=== PATIENT | female | born 1940 | race Caucasian/White ===

== ENCOUNTER 2018-04-13 18:09 | Inpatient (IN) | payer MEDICARE, OTHER ==
[~2018-04-13] VITALS: Ht 167.6 cm; Wt 66.7 kg
[~2018-04-13 18:09] MED LIST: GABA-534 PO; LEVO50TA8 PO; TURMERIC PO
[2018-04-13] MEDS ORDERED: ONDANSETRON 4 MG/2 ML VIAL ONE ×2 (18:23→21:33)
[2018-04-13] MEDS ORDERED: MORPHINE SULFATE 4 MG/1 ML DISP.SYRIN ONE ×2 (18:23→19:14)
[2018-04-13] MEDS ORDERED: MORPHINE SULFATE 2 MG/1 ML DISP.SYRIN IV ONE (18:30)
[2018-04-13] MEDS ORDERED: ONDANSETRON HCL 4 MG TABLET PO ONE (18:30)
[2018-04-13 18:34] LABS: BASOPHILS % (AUTO) 0.1 % (0.0-2.0); EOSINOPHILS % (AUTO) 0.2 % (0.0-7.0); HEMATOCRIT 24.8 % (31.2-41.9); HEMOGLOBIN 8.4 g/dL (10.9-14.3); LYMPHOCYTES # (AUTO) 1.1 K/uL (20.0-40.0); LYMPHOCYTES % (AUTO) 6.2 % (20.5-51.5); MEAN CORPUSCULAR HEMOGLOBIN 34.9 uug (24.7-32.8); MEAN CORPUSCULAR HGB CONC 34 g/dL (32.3-35.6); MEAN CORPUSCULAR VOLUME 103.3 fL (75.5-95.3); MONOCYTES # (AUTO) 1.1 K/uL (2.0-10.0); MONOCYTES % (AUTO) 5.8 % (0.0-11.0); NEUTROPHILS # (AUTO) 16.2 K/uL (1.8-8.9); NEUTROPHILS % (AUTO) 87.7 % (38.5-71.5); PLATELET COUNT (AUTO) 127 K/uL (179-408); WHITE BLOOD COUNT (AUTO) 18.4 K/uL (3.8-11.8)
--- NOTE | 2018-04-13 18:35 | NUR ---
PT UNABLE TO RECALL ALL MEDS AND DOSAGES AT THIS TIME, HER DAUGHTER WILL BRING MED BOTTLES LATER.
[2018-04-13] MEDS ORDERED: RANI150T43 PO (18:38)
[2018-04-13] MEDS ORDERED: BLADDER CONTROL PO (18:38)
[2018-04-13] MEDS ORDERED: STEROIDS PO (18:38)
[2018-04-13] MEDS ORDERED: BLOOD THINNER PO (18:38)
[2018-04-13 18:41] LABS: CARBON DIOXIDE 24 mmol/L (21-32); CHLORIDE 105 mmol/L (98-107); CREATININE 1.1 mg/dL (0.6-1.3); GLUCOSE 112 mg/dL (74-106); POTASSIUM 3.7 mmol/L (3.5-5.1); UREA NITROGEN, BLOOD 21 mg/dL (7-18)
[2018-04-13 18:48] LABS: NEUTROPHILS % (MANUAL) 81 % (42-75)
[2018-04-13 18:49] LABS: BAND % (MANUAL) 6 % (0-10); LYMPHOCYTES % (MANUAL) 9 % (20-40); MONOCYTES % (MANUAL) 4 % (2-10)
--- NOTE | 2018-04-13 19:08 | NUR ---
RECEIVED SHIFT REPORT FROM HILARY GIBSON.
[2018-04-13] MEDS ORDERED: IV NORMAL SALINE 500 ML BAG IV ONE (19:15)
[2018-04-13] MEDS ORDERED: MORPHINE SULFATE 4 MG/1 ML DISP.SYRIN IV ONE (19:15)
--- NOTE | 2018-04-13 21:09 | NUR ---
GAVE ADMITTING REPORT TO HILARY VANEGAS.
[2018-04-13] MEDS ORDERED: ACETAMINOPHEN 325 MG TABLET PO PRN (21:15)
[2018-04-13] MEDS ORDERED: ZOLPIDEM 5 MG TABLET PO PRN (21:15)
[2018-04-13] MEDS ORDERED: ONDANSETRON 4 MG/2 ML VIAL IV PRN ×2 (21:15→21:30)
[2018-04-13] MEDS ORDERED: MAGNESIUM HYDROXIDE 30 ML LIQUID UDC PO PRN (21:15)
[2018-04-13] MEDS ORDERED: Z GUARD REMEDY PASTE 57 GM TUBE TOP PRN (21:15)
[2018-04-13] MEDS ORDERED: LORAZEPAM 2 MG/1 ML VIAL IV PRN (21:15)
[2018-04-13] MEDS ORDERED: MORPHINE SULFATE 4 MG/1 ML DISP.SYRIN IV PRN (21:15)
[2018-04-13] MEDS ORDERED: ALBUTEROL SULFATE 2.5 MG/3 ML NEBU NEB PRN (21:15)
[2018-04-13] MEDS ORDERED: OXYCODONE/APAP 5-325 MG TABLET PO PRN (21:30)
[2018-04-13] MEDS ORDERED: HYDROMORPHONE 1 MG/1 ML DISP.SYRIN ONE (21:33)
[2018-04-13] MEDS: HYDROMORPHONE 1 MG/1 ML DISP.SYRIN IV PRN (21:38)
--- NOTE | 2018-04-13 22:00 | NUR ---
PATIENT NEWLY ADMITTED TO THE MED SURG UNIT WITH ADMIT DX OF C3-4 BULGING DISC/INTRACTABLE PAIN UNDER JUICE SCALEMAN MOLLY. PATIENT IN STABLE CONDITION UPON ADMISSION IN NO ACUTE DISTRESS. BP ELEVATED D/T EXTREME 10/10 NECK PAIN. WILL MEDICATE PER MD ORDER & REASSESS PAIN LEVEL. ALL OTHER VITALS WNL. PERTINENT ASSESSMENT COMPLETED. A/OX4 & ABLE TO MAKE ALL HER NEEDS KNOWN. SKIN IS CLEAN, DRY, INTACT. RM AIR AT 98%, DENIES SOB. NOTED WITH LEFT ANTERIOR CHEST WALL PORTACATH RUNNING WITH IV NS AT 75CC/HR FOR HYDRATION. PATIENT HAS A COLOSTOMY BAG LLQ. NO SKIN BREAKDOWN OR REDNESS NOTED AROUND SITE. BED IN LOW POSITION, LOCKED, X2 SIDE RAILS UP. CALL LIGHT WITHIN REACH. WILL CONTINUE TO MONITOR THROUGH SHIFT.
[2018-04-13 22:06] VITALS: BP 152/66
--- NOTE | 2018-04-13 23:00 | NUR ---
Family currently at the bedside. Patient stating she is a DNR/DNI & has a POLST at home. Daughter to bring in AM with advanced directives. Tree cantu RN witnessed patient statement.
[2018-04-14] MEDS: HYDROMORPHONE 1 MG/1 ML DISP.SYRIN IV PRN (00:33)
[2018-04-14] MEDS: IV NS 1000 ML 1,000 ML IV PRN ×2 (00:44→22:17)
[2018-04-14 03:25] VITALS: BP 115/50
[2018-04-14] MEDS: MORPHINE SULFATE 4 MG/1 ML DISP.SYRIN IV PRN ×2 (03:26→10:33)
[2018-04-14 05:21] VITALS: BP 120/47
--- NOTE | 2018-04-14 06:18 | NUR ---
C/O extreme 10/10 neck pain during the night. Administered pain meds as ordered. Little relief with pain medications. Comfort measures provided. Vital signs within range. Respiratory rate & o2 sat within limits. No SOB noted. All needs attended to promptly. Safety measures implemented. Call light within reach. Will endorse to day shift nurse.
[2018-04-14] MEDS: PANTOPRAZOLE SODIUM 40 MG TABLET.DR PO SCH (06:26)
[2018-04-14 06:29] LABS: BASOPHILS % (AUTO) 0.1 % (0.0-2.0); EOSINOPHILS % (AUTO) 0.1 % (0.0-7.0); HEMATOCRIT 23.2 % (31.2-41.9); HEMOGLOBIN 7.8 g/dL (10.9-14.3); LYMPHOCYTES # (AUTO) 1.1 K/uL (20.0-40.0); LYMPHOCYTES % (AUTO) 4.2 % (20.5-51.5); MEAN CORPUSCULAR HEMOGLOBIN 34.5 uug (24.7-32.8); MEAN CORPUSCULAR HGB CONC 34 g/dL (32.3-35.6); MEAN CORPUSCULAR VOLUME 102.7 fL (75.5-95.3); MONOCYTES # (AUTO) 1.3 K/uL (2.0-10.0); MONOCYTES % (AUTO) 4.8 % (0.0-11.0); NEUTROPHILS # (AUTO) 24.2 K/uL (1.8-8.9); NEUTROPHILS % (AUTO) 90.8 % (38.5-71.5); PLATELET COUNT (AUTO) 126 K/uL (179-408); WHITE BLOOD COUNT (AUTO) 26.6 K/uL (3.8-11.8)
[2018-04-14 06:32] LABS: RED BLOOD CELL COUNT(AUTO) 2.26 MIL/uL (3.63-4.92)
[2018-04-14 06:46] LABS: ALANINE AMINOTRANSFERASE 25 U/L (14-59); ALKALINE PHOSPHATASE 192 U/L (50-136); ASPARTATE AMINOTRANSFERASE 28 U/L (15-37); BILIRUBIN,TOTAL 0.5 mg/dL (0.2-1.0); CARBON DIOXIDE 22 mmol/L (21-32); CHLORIDE 104 mmol/L (98-107); CHOLESTEROL 139 mg/dL (<200); GLUCOSE 119 mg/dL (74-106); HDL CHOLESTEROL 93 mg/dL (40-60); MAGNESIUM 1.4 mg/dL (1.8-2.4); PHOSPHOROUS 3.6 mg/dL (2.5-4.9); POTASSIUM 4.1 mmol/L (3.5-5.1); TOTAL PROTEIN, SERUM 6.5 g/dL (6.4-8.2); TRIGLYCERIDES 57 MG/DL (30-150); UREA NITROGEN, BLOOD 22 mg/dL (7-18)
[2018-04-14 06:57] LABS: THYROID STIMULATING HORMONE 13.496 mIU/mL (0.358-3.740)
[2018-04-14 07:29] LABS: LYMPHOCYTES % (MANUAL) 7 % (20-40); MONOCYTES % (MANUAL) 2 % (2-10); NEUTROPHILS % (MANUAL) 91 % (42-75)
[2018-04-14] MEDS: MAGNESIUM SULFATE/D5W 100 ML IV SCH ×2 (07:59→08:55)
[2018-04-14] MEDS: CARISOPRODOL 350 MG TABLET PO SCH ×3 (08:02→17:12)
[2018-04-14] MEDS: GABAPENTIN 300 MG CAPSULE PO SCH ×3 (08:02→17:12)
[2018-04-14] MEDS: BACLOFEN 10 MG TABLET PO SCH ×3 (08:02→17:12)
[2018-04-14] MEDS: ASPIRIN EC 81 MG TABLET.DR PO SCH (08:09)
[2018-04-14] MEDS: LEVOTHYROXINE SODIUM 175 MCG TABLET PO SCH (08:12)
[2018-04-14] MEDS ORDERED: LEVOTHYROXINE SODIUM 50 MCG TABLET PO SCH (09:00)
[2018-04-14 10:14] LABS: *BILIRUBIN,URIN NEGATIVE (NEGATIVE); *BLOOD, URINE 1+ (NEGATIVE); *CLARITY,URINE SLIGHTLY CLOUDY (CLEAR); *COLOR,URINE DARK YELLOW (YELLOW); *KETONES,URINE NEGATIVE (NEGATIVE); *PROTEIN,URINE 1+ (NEGATIVE); *UROBILINOGEN,URINE 0.2 E.U./dl (NORMAL); LEUKOCYTE ESTERASE ,URINE TRACE (NEGATIVE); NITRITE, URINE POSITIVE (NEGATIVE); PH,URINE 5.5 (5.0-8.0); UGLUCOSE NEGATIVE (NEGATIVE)
[2018-04-14 10:38] LABS: BACTERIA,URINE MANY /HPF (NONE SEEN); RBC,URINE 20-50 /HPF (0-3); WBC,URINE 50-80 /HPF (0-3)
[2018-04-14 10:39] LABS: SQUAMOUS EPITHELIAL CELL,UR FEW /HPF (NONE SEEN)
[2018-04-14] MEDS ORDERED: LEVOFLOXACIN 500 MG TABLET PO SCH (11:00)
[2018-04-14 11:55] VITALS: BP 104/46
[2018-04-14 15:54] VITALS: BP 107/47
[2018-04-14] MEDS ORDERED: RANI150T8 PO (18:15)
[2018-04-14] MEDS ORDERED: DABI150C PO (18:15)
[2018-04-14] MEDS ORDERED: FOLI1TAB16 PO (18:15)
[2018-04-14] MEDS ORDERED: ANAS1TAB8 PO (18:15)
[2018-04-14] MEDS ORDERED: DEXA4TAB PO (18:15)
[2018-04-14] MEDS ORDERED: OXYB5TAB11 PO (18:15)
--- NOTE | 2018-04-14 18:21 | NUR ---
PT OBSERVED SLEEPING IN BED, PAIN CONTROLLED AT THIS TIME, WARM PACKS APPLIED TO NECK. PT SHOWS NO SIGNS OF RESPIRATORY DISTRESS. CONTINUE TO MONITOR PT.
[2018-04-14] MEDS ORDERED: MORPHINE SULFATE 4 MG/1 ML DISP.SYRIN IV PRN (18:45)
--- NOTE | 2018-04-14 19:20 | NUR ---
RECEIVED PT AWAKE, ALERT AND ORIENTEDX2. PT COUGHING. PT SHOWS NO SIGNS OF DISTRESS. COLOSTOMY BAG INTACT. IV INTACT AND PATENT. CALL LIGHT WITHIN REACH. BED ALARM AND IN LOW POSITION, SIDE RAILS UPX2. WILL CONTINUE TO MONITOR.
[2018-04-14 19:42] VITALS: BP 126/56
[2018-04-14] MEDS: HYDROCODONE/APAP 5-325MG TABLET PO PRN (20:47)
--- NOTE | 2018-04-14 20:47 | NUR ---
PT COMPLAINING OF 10/10 PAIN ON HER NECK. FAMILY AT BEDSIDE. GAVE NORCO. FAMILY AND PT REFUSED TO HAVE TYLENOL ES MEDICATION SINCE SHE TOOK NORCO. PT STILL IN PAIN WILL CONTINUE TO MONITOR.
[2018-04-14] MEDS: ACETAMINOPHEN ES 500 MG TABLET PO SCH (21:00)
[2018-04-14] MEDS ORDERED: ACETAMINOPHEN 325 MG TABLET PO SCH (21:15)
--- NOTE | 2018-04-14 21:47 | NUR ---
PT TOLERATED THE NORCO MEDICATION. PT PAIN SUBSIDED TO 4/10. PT SLEEPING AND AROUSES EASILY. CHANGED THE COLOSTOMY BAG WITH THE CHARGE NURSE. WILL CONTINUE TO MONITOR.
[2018-04-15] VITALS (9 sets, daily range): BP systolic 99–138; BP diastolic 43–61
--- NOTE | 2018-04-15 | NUR ---
HANDS OFF REPORT TO MAKI RICHARD. PT STABLE WITH NO ACUTE DISTRESS. IV INTACT AND PATENT. SAFETY AND COMFORT PROVIDED. WILL CONTINUE TO MONITOR.
[2018-04-15] MEDS: HYDROCODONE/APAP 5-325MG TABLET PO PRN (02:44)
[2018-04-15] MEDS: ACETAMINOPHEN ES 500 MG TABLET PO SCH ×4 (03:00→20:11)
--- NOTE | 2018-04-15 03:15 | NUR ---
PATIENT AWAKE IN BED. VERY ANXIOUS. PATIENT GIVEN ATIVAN 1MG IV PER INSTRUMENT AND CONTROL SERVICE PERSON. VSS. CALL LIGHT IN REACH. ALL NEEDS ATTENDED. WILL CONTINUE TO MONITOR.
--- NOTE | 2018-04-15 06:10 | NUR ---
PATIENT ASLEEP IN BED. EASILY AROUSABLE BUT QUICKLY FALLS BACK ASLEEP. UNABLE TO TAKE PO MEDS AT THIS TIME. WILL CONTINUE TO MONITOR. IVF INFUSING WELL. ALL NEEDS ATTENDED. CALL LIGHT IN REACH. ALL NEEDS ATTENDED. WILL CONTINUE TO MONITOR AND ASSESS.
[2018-04-15] MEDS: PANTOPRAZOLE SODIUM 40 MG TABLET.DR PO SCH (06:12)
[2018-04-15] MEDS: LEVOTHYROXINE SODIUM 175 MCG TABLET PO SCH (06:12)
[2018-04-15 06:49] LABS: BASOPHILS % (AUTO) 0.1 % (0.0-2.0); EOSINOPHILS % (AUTO) 0.2 % (0.0-7.0); LYMPHOCYTES # (AUTO) 0.6 K/uL (20.0-40.0); LYMPHOCYTES % (AUTO) 5.7 % (20.5-51.5); MEAN CORPUSCULAR HEMOGLOBIN 35.2 uug (24.7-32.8); MEAN CORPUSCULAR HGB CONC 34 g/dL (32.3-35.6); MEAN CORPUSCULAR VOLUME 103.7 fL (75.5-95.3); MONOCYTES # (AUTO) 0.6 K/uL (2.0-10.0); MONOCYTES % (AUTO) 6.3 % (0.0-11.0); NEUTROPHILS # (AUTO) 8.7 K/uL (1.8-8.9); NEUTROPHILS % (AUTO) 87.7 % (38.5-71.5); PLATELET COUNT (AUTO) 92 K/uL (179-408); WHITE BLOOD COUNT (AUTO) 9.9 K/uL (3.8-11.8)
[2018-04-15 07:05] LABS: CARBON DIOXIDE 23 mmol/L (21-32); CHLORIDE 106 mmol/L (98-107); GLUCOSE 108 mg/dL (74-106); MAGNESIUM 1.7 mg/dL (1.8-2.4); POTASSIUM 3.7 mmol/L (3.5-5.1); UREA NITROGEN, BLOOD 16 mg/dL (7-18)
[2018-04-15 07:12] LABS: RED BLOOD CELL COUNT(AUTO) 1.87 MIL/uL (3.63-4.92)
[2018-04-15 07:13] LABS: HEMATOCRIT 19.3 % (31.2-41.9)
[2018-04-15 07:14] LABS: HEMOGLOBIN 6.6 g/dL (10.9-14.3)
[2018-04-15 07:56] LABS: LYMPHOCYTES % (MANUAL) 6 % (20-40); MONOCYTES % (MANUAL) 6 % (2-10); NEUTROPHILS % (MANUAL) 88 % (42-75)
[2018-04-15] MEDS ORDERED: ACETAMINOPHEN ES 500 MG TABLET PO ONE (08:00)
[2018-04-15] MEDS: MAGNESIUM SULFATE/D5W 100 ML IV SCH ×2 (08:01→09:27)
[2018-04-15] MEDS: BACLOFEN 10 MG TABLET PO SCH ×2 (08:01→18:01)
[2018-04-15] MEDS: GABAPENTIN 300 MG CAPSULE PO SCH ×3 (08:03→18:01)
[2018-04-15] MEDS: ASPIRIN EC 81 MG TABLET.DR PO SCH (09:00)
[2018-04-15 09:45] LABS: IRON, SERUM 28 ug/dL (50-175)
[2018-04-15 10:24] LABS: FERRITIN 194 ng/mL (8-252)
[2018-04-15] MEDS ORDERED: LEVOFLOXACIN 250 MG TABLET PO SCH (11:00)
[2018-04-15] MEDS: MORPHINE SULFATE 2 MG/1 ML DISP.SYRIN IV PRN (13:00)
[2018-04-15 15:11] LABS: HEMATOCRIT 24.4 % (31.2-41.9); HEMOGLOBIN 8.2 g/dL (10.9-14.3)
[2018-04-15 17:09] LABS: *OCCULT BLOOD STOOL POSITIVE (NEGATIVE)
[2018-04-15] MEDS: FERROUS SULFATE 325 MG TABEC PO SCH ×2 (18:00→20:11)
[2018-04-15] MEDS: OXYBUTYNIN CHLORIDE 5 MG TABLET PO SCH (18:01)
--- NOTE | 2018-04-15 18:33 | NUR ---
pt observed resting in bed, calm, no signs of distress, RA, Aox2, bed alarm on. blood occult positive, positive for uti plan is to continue Levaquin and start on iron and Protonix bid. Continue to monitor pt.
--- NOTE | 2018-04-15 19:17 | NUR ---
RECEIVED PT AWAKE, ALERT AND ORIENTEDX3. PT SHOWS NO SIGNS OF DISTRESS. IV INTACT. PT ON SALINE LOCK. PT STABLE. CALL LIGHT WITHIN REACH. SAFETY AND COMFORT PROVIDED. WILL CONTINUE TO MONITOR.
[2018-04-15 22:09] LABS: LACTATE DEHYDROGENASE 716 U/L (81-234)
[2018-04-16] MEDS: MORPHINE SULFATE 2 MG/1 ML DISP.SYRIN IV PRN ×4 (01:50→15:50)
[2018-04-16] MEDS: ACETAMINOPHEN ES 500 MG TABLET PO SCH ×4 (03:00→20:34)
[2018-04-16] MEDS: LEVOTHYROXINE SODIUM 200 MCG TABLET PO SCH (06:04)
[2018-04-16] MEDS: PANTOPRAZOLE SODIUM 40 MG TABLET.DR PO SCH ×2 (06:04→16:50)
--- NOTE | 2018-04-16 06:09 | NUR ---
PT SLEPT THROUGHOUT THE SHIFT. PT SHOWS NO SIGNS OF DISTRESS. PRESCRIBED MEDICATION GIVEN AND PT TOLERATED IT WELL.. IV INTACT. CALL LIGHT WITHIN REACH. BED ALARM ON AND IN LOW POSITION. SIDE RAILS UPX2. SAFETY AND COMFORT PROVIDED. ALL NEEDS ARE MET. WILL CONTINUE TO MONITOR.
[2018-04-16 06:32] VITALS: BP 128/50
[2018-04-16 06:41] LABS: BASOPHILS % (AUTO) 0.1 % (0.0-2.0); HEMATOCRIT 23.3 % (31.2-41.9); HEMOGLOBIN 7.9 g/dL (10.9-14.3); LYMPHOCYTES # (AUTO) 0.8 K/uL (20.0-40.0); LYMPHOCYTES % (AUTO) 5.9 % (20.5-51.5); MEAN CORPUSCULAR HEMOGLOBIN 34.7 uug (24.7-32.8); MEAN CORPUSCULAR HGB CONC 34 g/dL (32.3-35.6); MEAN CORPUSCULAR VOLUME 101.8 fL (75.5-95.3); MONOCYTES # (AUTO) 0.6 K/uL (2.0-10.0); MONOCYTES % (AUTO) 4.5 % (0.0-11.0); NEUTROPHILS # (AUTO) 12.1 K/uL (1.8-8.9); NEUTROPHILS % (AUTO) 89.5 % (38.5-71.5); PLATELET COUNT (AUTO) 128 K/uL (179-408); WHITE BLOOD COUNT (AUTO) 13.5 K/uL (3.8-11.8)
[2018-04-16 06:56] LABS: CARBON DIOXIDE 24 mmol/L (21-32); CHLORIDE 106 mmol/L (98-107); CREATININE 0.9 mg/dL (0.6-1.3); GLUCOSE 114 mg/dL (74-106); MAGNESIUM 1.8 mg/dL (1.8-2.4); PHOSPHOROUS 2.8 mg/dL (2.5-4.9); POTASSIUM 3.4 mmol/L (3.5-5.1); UREA NITROGEN, BLOOD 7 mg/dL (7-18)
[2018-04-16 06:58] LABS: RED BLOOD CELL COUNT(AUTO) 2.28 MIL/uL (3.63-4.92)
[2018-04-16] MEDS ORDERED: LEVOTHYROXINE SODIUM 175 MCG TABLET PO SCH (07:00)
--- NOTE | 2018-04-16 07:57 | NUR ---
Received patient asleep in bed, easily arousable, alert and oriented x 4. Patient not in any form of distress. Bed in low position and side rails x 2 up. Call light within reach. Patient complaining of cervical pain, will give pain medication as ordered. All needs attended. Ensured patient safety and comfort. Will continue to monitor.
[2018-04-16] MEDS: ANASTROZOLE 1 MG TABLET PO SCH (09:00)
[2018-04-16] MEDS: BACLOFEN 10 MG TABLET PO SCH ×2 (09:02→16:51)
[2018-04-16] MEDS: OXYBUTYNIN CHLORIDE 5 MG TABLET PO SCH ×2 (09:02→16:50)
[2018-04-16] MEDS: FOLIC ACID 1 MG TABLET PO SCH (09:02)
[2018-04-16] MEDS: GABAPENTIN 300 MG CAPSULE PO SCH ×3 (09:02→16:50)
[2018-04-16] MEDS: FERROUS SULFATE 325 MG TABEC PO SCH ×2 (09:03→20:34)
[2018-04-16] MEDS ORDERED: diphenhydrAMINE 50 MG CAPSULE PO PRN (09:45)
[2018-04-16] MEDS ORDERED: ACETAMINOPHEN ES 500 MG TABLET PO PRN (09:45)
[2018-04-16] MEDS ORDERED: LEVOFLOXACIN 500 MG TABLET PO SCH (11:00)
[2018-04-16 11:26] VITALS: BP 116/55
[2018-04-16] MEDS ORDERED: POTASSIUM CHLORIDE 20 MEQ POWDER PACKET PO ONE (11:45)
[2018-04-16 16:04] VITALS: BP 114/53
[2018-04-16] MEDS ORDERED: diphenhydrAMINE 25 MG CAP PO PRN (17:30)
[2018-04-16 18:08] LABS: HEMATOCRIT 25.2 % (31.2-41.9); HEMOGLOBIN 8.6 g/dL (10.9-14.3)
--- NOTE | 2018-04-16 18:31 | NUR ---
Patient awake in high back rest, not in any form of distress, still with complaints of neck pain, prn pain medications given with relief noted. Patient able to ambulate with assist. Noted, was able to confirm that patient takes Anastrozole pre-admission as hormone pill. Bed kept in low position, side rails up x 2, call light within reach and ensured patient safety and comfort.
--- NOTE | 2018-04-16 19:39 | NUR ---
PATIENT IS AWAKE IN BED, AAOX4. DENIES PAIN OR ANY DISTRESS ON ASSESSMENT. SAFETY AND COMFORT MEASURES IN PLACE, WILL CONTINUE TO MONITOR PATIENT
[2018-04-16 20:00] VITALS: BP 118/51
[2018-04-17] MEDS: ACETAMINOPHEN ES 500 MG TABLET PO SCH ×3 (03:25→15:12)
[2018-04-17 04:42] VITALS: BP 133/54
[2018-04-17] MEDS: PANTOPRAZOLE SODIUM 40 MG TABLET.DR PO SCH ×2 (06:07→17:05)
[2018-04-17] MEDS: LEVOTHYROXINE SODIUM 200 MCG TABLET PO SCH (06:07)
--- NOTE | 2018-04-17 06:12 | NUR ---
PATIENT SLEPT WELL ON THIS SHIFT, NO C/O PAIN OR DISTRESS ON THIS SHIFT. ROUTINE PAIN MEDS GIVEN ORDERED. PATIENT IN STABLE CONDITION. V/S WNL. SAFETY MEASURES MAINTAINED AT ALL TIMES
[2018-04-17 06:13] LABS: BASOPHILS % (AUTO) 0.1 % (0.0-2.0); EOSINOPHILS % (AUTO) 0.2 % (0.0-7.0); HEMATOCRIT 23.8 % (31.2-41.9); HEMOGLOBIN 8.2 g/dL (10.9-14.3); LYMPHOCYTES # (AUTO) 0.9 K/uL (20.0-40.0); LYMPHOCYTES % (AUTO) 7.6 % (20.5-51.5); MEAN CORPUSCULAR HGB CONC 34 g/dL (32.3-35.6); MONOCYTES # (AUTO) 0.6 K/uL (2.0-10.0); MONOCYTES % (AUTO) 4.7 % (0.0-11.0); NEUTROPHILS # (AUTO) 10.9 K/uL (1.8-8.9); NEUTROPHILS % (AUTO) 87.4 % (38.5-71.5); PLATELET COUNT (AUTO) 156 K/uL (179-408); WHITE BLOOD COUNT (AUTO) 12.5 K/uL (3.8-11.8)
[2018-04-17 06:14] LABS: RED BLOOD CELL COUNT(AUTO) 2.34 MIL/uL (3.63-4.92)
[2018-04-17 06:48] LABS: CARBON DIOXIDE 27 mmol/L (21-32); CHLORIDE 107 mmol/L (98-107); CREATININE 1.1 mg/dL (0.6-1.3); GLUCOSE 95 mg/dL (74-106); MAGNESIUM 1.7 mg/dL (1.8-2.4); POTASSIUM 3.5 mmol/L (3.5-5.1)
[2018-04-17 06:59] LABS: UREA NITROGEN, BLOOD 11 mg/dL (7-18)
--- NOTE | 2018-04-17 08:14 | NUR ---
Received patient awake on high back rest, alert and oriented x 4. Patient not in any form of distress at the moment. Not complaining of severe cervical pain at the moment but will continue to monitor. Bed in low position and side rails x 2 up. Call light within reach. Ensured patient safety and comfort.
[2018-04-17] MEDS: BACLOFEN 10 MG TABLET PO SCH ×2 (09:07→17:05)
[2018-04-17] MEDS: FOLIC ACID 1 MG TABLET PO SCH (09:07)
[2018-04-17] MEDS: FERROUS SULFATE 325 MG TABEC PO SCH (09:07)
[2018-04-17] MEDS: GABAPENTIN 300 MG CAPSULE PO SCH ×3 (09:07→17:04)
[2018-04-17] MEDS: OXYBUTYNIN CHLORIDE 5 MG TABLET PO SCH ×2 (09:07→17:04)
[2018-04-17] MEDS: ANASTROZOLE 1 MG TABLET PO SCH (09:10)
[2018-04-17] MEDS: MAGNESIUM SULFATE/D5W 100 ML IV SCH ×2 (09:48→10:54)
[2018-04-17] MEDS ORDERED: LEVOFLOXACIN 250 MG TABLET PO SCH (11:00)
[2018-04-17] MEDS ORDERED: LEVO500T2 PO (11:03)
[2018-04-17] MEDS: MORPHINE SULFATE 2 MG/1 ML DISP.SYRIN IV PRN ×2 (11:06→18:10)
[2018-04-17 11:22] VITALS: BP 111/54
[2018-04-17 15:02] VITALS: BP 109/49
--- NOTE | 2018-04-17 17:52 | NUR ---
Patient awake in bed, not in any form of distress. Noted patient for discharge today, discharge instructions provided, follow up information provided, disc of diagnostic imaging tests provided to patient, prescription provided to patient. Hubber needle removed prior to discharge. Noted patient in stable condition and will be discharged with daughter to home.
[2018-04-21] MEDS ORDERED: diphenhydrAMINE 25 MG CAP PO ONE (08:00)
== END 2018-04-17 18:30 | disposition home or self-care (01) | DRG 551 ==
LOC: ER 18:12 → MED 21:13
PROVIDERS: ADMIT Nurse Practitioner Acute Care; ATTEND Nurse Practitioner Acute Care
PROC: 30233N1 Transfusion of Nonautologous Red Blood Cells into Peripheral Vein, Percutaneous Approach (ICD-10-PCS; principal; 2018-04-15)
DX: M50.11 Cervical disc disorder with radiculopathy, high cervical region (principal); G92 Toxic encephalopathy; N17.0 Acute kidney failure with tubular necrosis; C56.9 Malignant neoplasm of unspecified ovary; M50.01 Cervical disc disorder with myelopathy, high cervical region; J98.11 Atelectasis; N39.0 Urinary tract infection, site not specified; C78.6 Secondary malignant neoplasm of retroperitoneum and peritoneum; M48.02 Spinal stenosis, cervical region; Z92.21 Personal history of antineoplastic chemotherapy; Z90.49 Acquired absence of other specified parts of digestive tract; E03.9 Hypothyroidism, unspecified; G62.9 Polyneuropathy, unspecified; Z79.01 Long term (current) use of anticoagulants; D69.59 Other secondary thrombocytopenia; T45.1X5A Adverse effect of antineoplastic and immunosuppressive drugs, initial encounter; Y92.019 Unspecified place in single-family (private) house as the place of occurrence of the external cause; D72.829 Elevated white blood cell count, unspecified; T38.0X5A Adverse effect of glucocorticoids and synthetic analogues, initial encounter; T45.8X5A Adverse effect of other primarily systemic and hematological agents, initial encounter; D50.9 Iron deficiency anemia, unspecified; Z93.3 Colostomy status; M25.78 Osteophyte, vertebrae; R73.9 Hyperglycemia, unspecified; I10 Essential (primary) hypertension; I67.2 Cerebral atherosclerosis; R51 Headache; Z85.41 Personal history of malignant neoplasm of cervix uteri
CPT/HCPCS: 36415; 70450; 71045; 72125; 72141; 82747; 83550; 83605; 83615; 83735; 84100; 84443; 85014; 85018; 85025; 85730; 86850; 86900; 86901; 86920; 87040; 87086; 93005; A4663; A9150; G0378; J1170; J2060; J2270; J2405; J3475; J7030; J7040; P9016-BL; P9021; Q0163